=== PATIENT | male | born 1955 | race Caucasian/White ===

== ENCOUNTER → 2017-10-13 | Outpatient (CLI) | payer MEDICARE, OTHER ==
[~2017-10-13] MED LIST: ACET500 PO; ALBU3IS INH; ALBU90OI6 INH; ALLO100 PO; ALLO300 PO; ALUMAGX30 PO; AMIT25 PO; AMITRIP CDP PO; AMOCLA875 PO; AMOX1XR PO; AMOX500 PO; AMOXICILLIN-CL1 EACH PO; ASPI325 PO; ASPI325EC PO; ASPI81CH PO; Aspir 8181 MG PO; BENZ100A PO; BUDE6HFA; BYDUREON P2 MG/0.65 SQ; BYDUREON2 MG SQ; CEPH500 PO; CLON.1 PO; COLC.6 PO; COLL250TO TOP; CYAN100 PO; CYAN1000 PO; CYAN500 PO; DOCU100 PO; DULO60; DULO60 PO; ERGO50000 PO; FURO40 PO; GABA600 PO; Humalog100 UNIT/1; Humalog100 UNIT/1 SC; INSULANI SC; ISOMON30 PO; Isosorbide Mono30 MG PO; LAVAP17G PO; LISHYD1012 PO; LISI20 PO; LISI5 PO; LITH300C PO; LORA10 PO; LORA10ER; LORA10ER PO; Lisinopril2.5 MG PO; METF500 PO; METH10 PO; METO100ER PO; METO50 PO; MORP15ER PO; MULVITMIND PO; NICO14TP TOP; NITR.4SL SL; OLME20 PO; OMEP20ER PO; OTC COUGH; OXYACE5T PO; OXYC1TAB11; OXYC30ER PO; PERCOCET 10/325 PO; PIOG45 PO; POLY17UD PO; POTA10T PO; POTCHL20ER PO; PRAV20 PO; PRAV40 PO; Percocet 10-321 EACH PO; ROSU10TA PO; SACC250C PO; SENN187 PO; SERT50 PO; SULTRIDS PO; Senexon8.6 MG PO; TERA1 PO; TRAZ150T57 PO; Ventolin5 MG/1 ML INH; Vitamin B Comple1 EA PO
[2017-10-13 18:27] LABS: Alanine Aminotransfer (ALT/SGP 50 U/L (12-78); Albumin, Blood 3.4 g/dL (3.4-5.0); Albumin/Globulin Ratio 0.9 (0.8-1.8); Alk Phos 109 U/L (50-136); Anion Gap 10 mmol/L (6-16); Aspartate Aminotrans (AST/SGOT 27 U/L (12-37); Bilirubin, Total 0.2 mg/dL (0.1-1.0); Blood Urea Nitrogen 12 mg/dL (8-24); Bun/Creatinine Ratio 16.6 (12.0-20.0); CHOL/HDL RATIO 4.5; CO2, Blood 25 mmol/L (21-32); Calcium, Blood 9.6 mg/dL (8.5-10.1); Chloride, Blood 104 mmol/L (98-108); Cholesterol 159 mg/dL (50-200); Creatinine, Blood 0.72 mg/dL (0.60-1.20); Globulin, Blood 3.9 g/dL (2.2-4.0); Glomerular Filtration Rate >60 (60-); Glucose, Blood 197 mg/dL (70-99); HDL Cholesterol 35 mg/dL (>39); LDL/HDL RATIO 1.5; Low Density Lipoprotein Chol 52 mg/dL (0-110); Potassium, Blood 3.9 mmol/L (3.5-5.5); Sodium, Blood 139 mmol/L (136-145); Total Protein, Blood 7.3 g/dL (6.4-8.2); Triglycerides 362 mg/dL (30-160); Very Low Density Lipoprot Chol 72 mg/dL (6-32)
== END | disposition home or self-care (01) ==
LOC: LAB 16:10
PROVIDERS: Nurse Practitioner Family
DX: E11.49 Type 2 diabetes mellitus with other diabetic neurological complication (principal)
CPT/HCPCS: 80053; 80061; 82043; 83036

== ENCOUNTER 2023-08-10 10:18 | Emergency (ER) | payer MEDICARE, OTHER ==
[~2023-08-10] VITALS: Ht 188 cm; Wt 127.0 kg
[~2023-08-10 10:18] MED LIST changes: +METHOCARBAMOL1000 MG PO
[2023-08-10 10:43] VITALS: BP 106/78
[2023-08-10 11:25] LABS: BASOPHILS ABSOLUTE AUTO 0.04 K/mm3 (0.00-0.23); BASOPHILS PERCENT AUTO 0 % (0-2); EOSINOPHILS PERCENT AUTO 1 % (0-6); Hematocrit 46.5 % (37.0-53.0); Hemoglobin 15.1 g/dL (13.5-17.5); IMMATURE GRAN ABSOLUTE AUTO 0.06 K/mm3 (0.00-0.10); IMMATURE GRAN PERCENT AUTO 1 % (0-1); LYMPHOCYTES ABSOLUTE AUTO 1.98 K/mm3 (0.84-5.20); LYMPHOCYTES PERCENT AUTO 22 % (21-46); MONOCYTES ABSOLUTE AUTO 0.73 K/mm3 (0.16-1.47); MONOCYTES PERCENT AUTO 8 % (4-13); Mean Corpuscular HGB 31.7 pg (26.0-34.0); Mean Corpuscular HGB Conc 32.5 g/dL (31.5-36.5); Mean Corpuscular Volume 98 fL (80-100); Mean Platelet Volume 9.7 fL (9.1-12.4); NEUTROPHILS ABSOLUTE AUTO 6.24 K/mm3 (1.96-9.15); NEUTROPHILS PERCENT AUTO 68 % (41-73); Platelet Count 236 K/mm3 (150-400); RDW Standard Deviation 50.5 fL (35.1-46.3); Red Blood Cell Count 4.77 M/mm3 (4.30-5.90); White Blood Cell Count 9.15 K/mm3 (4.00-11.30)
[2023-08-10 11:36] LABS: Ethanol (Alcohol), Blood, Med <3 mg/dL; Salicylate <1.7 mg/dL (2.8-20.0)
[2023-08-10 11:39] LABS: Alanine Aminotransfer (ALT/SGP 39 U/L (12-78); Albumin, Blood 3.3 g/dL (3.4-5.0); Albumin/Globulin Ratio 0.9 (0.8-1.8); Alk Phos 100 U/L (50-136); Anion Gap 2 mmol/L (6-16); Aspartate Aminotrans (AST/SGOT 22 U/L (12-37); Bilirubin, Total 0.4 mg/dL (0.1-1.0); Blood Urea Nitrogen 15 mg/dL (8-24); Bun/Creatinine Ratio 14.2 (12.0-20.0); CO2, Blood 31 mmol/L (21-32); Calcium, Blood 9.5 mg/dL (8.5-10.1); Chloride, Blood 107 mmol/L (98-108); Creatinine, Blood 1.06 mg/dL (0.60-1.20); Globulin, Blood 3.8 g/dL (2.2-4.0); Glomerular Filtration Rate 76 (60-); Glucose, Blood 170 mg/dL (70-99); Potassium, Blood 4.7 mmol/L (3.5-5.5); Sodium, Blood 140 mmol/L (136-145); Total Protein, Blood 7.1 g/dL (6.4-8.2)
[2023-08-10 11:39] LABS: Source, Urine Clean Catch
[2023-08-10 11:40] LABS: Acetaminophen, Random <2.0 ug/mL (10.0-30.0)
[2023-08-10 11:45] LABS: Appearance, Urine Clear (Clear); Bilirubin, Urine Neg (Neg); Blood, Urine Neg (Neg); Color, Urine Yellow (P-Yellow); Glucose Qualitative, Urine 4+ (Neg); Ketones, Urine 1+ (Neg); Leukocyte Esterase, Urine Neg (Neg); Nitrite, Urine Neg (Neg); Protein, Urine 2+ (Neg); Specific Gravity, Urine 1.025 (1.003-1.022); Urobilinogen, Urine NORM (Normal)
[2023-08-10 11:52] LABS: Bacteria Rare /hpf; Mucus Light (0-Heavy); Red Blood Cells, Urine 0-2 /hpf (0-2); Squamous Epithelial Cells Not Seen /hpf (Few); White Blood Cells, Urine 0-2 /hpf (0-5)
[2023-08-10 11:58] LABS: U Cannabinoids Screen DETECTED; U Oxycodone Screen DETECTED
[2023-08-10 11:59] LABS: U Amphetamine Screen Not Detected; U Barbituate Screen Not Detected; U Benzodiazapine Screen Not Detected; U Buprenorphine Screen Not Detected; U Cocaine Screen Not Detected; U Methadone Screen Not Detected; U Methamphetamine Screen Not Detected; U Opiates Screen Not Detected; U Phencyclidine Screen Not Detected; U Propoxyphene Screen Not Detected
== END 2023-08-10 14:45 | disposition home or self-care (01) ==
LOC: ER 10:18
PROVIDERS: Emergency Medicine
DX: F32.A Depression, unspecified (principal); F43.9 Reaction to severe stress, unspecified; I48.92 Unspecified atrial flutter; Z88.8 Allergy status to other drugs, medicaments and biological substances; Z79.899 Other long term (current) drug therapy; Z79.82 Long term (current) use of aspirin; Z79.4 Long term (current) use of insulin; F17.210 Nicotine dependence, cigarettes, uncomplicated; E11.40 Type 2 diabetes mellitus with diabetic neuropathy, unspecified; I11.0 Hypertensive heart disease with heart failure; I50.9 Heart failure, unspecified
CPT/HCPCS: 36415; 71045; 80053; 81001; 83880; 84484; 85025; 93005; 93010; 99284-25; G0480

== ENCOUNTER → 2023-11-26 | Outpatient (CLI) | payer MEDICARE, OTHER ==
[2023-11-26 15:53] LABS: Source, Urine Clean Catch
[2023-11-26 16:20] LABS: Appearance, Urine Clear (Clear); Bilirubin, Urine Neg (Neg); Blood, Urine Neg (Neg); Color, Urine Yellow (P-Yellow); Glucose Qualitative, Urine Neg (Neg); Ketones, Urine Neg (Neg); Leukocyte Esterase, Urine Neg (Neg); Nitrite, Urine Neg (Neg); Protein, Urine 2+ (Neg); Urobilinogen, Urine NORM (Normal)
[2023-11-26 16:40] LABS: Bacteria Few /hpf; Mucus Light (0-Heavy); Red Blood Cells, Urine 0-2 /hpf (0-2); Squamous Epithelial Cells Rare /hpf (Few); White Blood Cells, Urine 0-2 /hpf (0-5)
== END ==
LOC: LAB 15:51 → LAB SHORT 15:51
PROVIDERS: Internal Medicine Nephrology
DX: N39.0 Urinary tract infection, site not specified (principal)
CPT/HCPCS: 81001

== ENCOUNTER 2024-06-29 08:10 | Inpatient (IN) | payer MEDICARE, OTHER ==
[~2024-06-29] VITALS: Ht 190.5 cm; Wt 106.0 kg
[~2024-06-29 08:10] MED LIST changes: +ALLOPURINOL100 M1 PO; +ASPIR 8181 M1 PO; +BASAGLAR K100 UNIT/3 SC; +CATAPRES0.1 MG PO; +COLCRYS0.6 M1 PO; +DILTIAZEM 24HR300 M2 PO; +DULOXETINE HCL60 M1 PO; +ELIQUIS5 M2 PO; +FURO80 PO; +JARDIANCE10 MG PO; +KLOR-CON 1010 ME9 PO; +METO50ER PO; +MIRALAX17 GM PO; +NOVOLOG100 UNIT/2 SC; -OXYC1TAB11; +PRED20 PO; +Percocet 5-3251 EACH PO; +SPIR25 PO
[2024-06-29 08:36] LABS: Base Excess Venous -1.7 mmol/L; Bicarbonate Venous 20.9 mmol/L (24.0-30.0); PCO2 Venous 56.2 mmHg (38-42); pH Blood Venous 7.26 (7.34-7.37)
[2024-06-29 08:46] LABS: BASOPHILS ABSOLUTE AUTO 0.05 K/mm3 (0.00-0.23); BASOPHILS PERCENT AUTO 0 % (0-2); EOSINOPHILS PERCENT AUTO 0 % (0-6); Hematocrit 52.2 % (37.0-53.0); IMMATURE GRAN ABSOLUTE AUTO 0.21 K/mm3 (0.00-0.10); IMMATURE GRAN PERCENT AUTO 1 % (0-1); LYMPHOCYTES ABSOLUTE AUTO 1.15 K/mm3 (0.84-5.20); LYMPHOCYTES PERCENT AUTO 8 % (21-46); MONOCYTES ABSOLUTE AUTO 1.11 K/mm3 (0.16-1.47); MONOCYTES PERCENT AUTO 8 % (4-13); Mean Corpuscular HGB 30.8 pg (26.0-34.0); Mean Corpuscular HGB Conc 32.6 g/dL (31.5-36.5); Mean Corpuscular Volume 95 fL (80-100); Mean Platelet Volume 10.7 fL (9.1-12.4); NEUTROPHILS ABSOLUTE AUTO 12.36 K/mm3 (1.96-9.15); NEUTROPHILS PERCENT AUTO 83 % (41-73); Platelet Count 196 K/mm3 (150-400); RDW Coefficient Variation 13.9 % (11.7-14.2); Red Blood Cell Count 5.52 M/mm3 (4.30-5.90); White Blood Cell Count 14.88 K/mm3 (4.00-11.30)
[2024-06-29 08:56] LABS: Albumin, Blood 3.4 g/dL (3.4-5.0); Albumin/Globulin Ratio 0.7 (0.8-1.8); Bilirubin, Total 1.2 mg/dL (0.1-1.0); Bun/Creatinine Ratio 41.5 (12.0-20.0); Calcium, Blood 10.6 mg/dL (8.5-10.1); Creatinine, Blood 1.35 mg/dL (0.60-1.20); Globulin, Blood 4.8 g/dL (2.2-4.0); Potassium, Blood 5.3 mmol/L (3.5-5.5); Total Protein, Blood 8.2 g/dL (6.4-8.2)
[2024-06-29] MEDS ORDERED: NS 1,000 ML IV SCH (09:30)
[2024-06-29 09:43] LABS: Influenza A, PCR NEGATIVE (NEGATIVE); Influenza B, PCR NEGATIVE (NEGATIVE); Resp Syncytial Virus, PCR NEGATIVE (NEGATIVE); SARS-Cov-2 (COVID-19) PCR, MMC NEGATIVE (NEGATIVE)
[2024-06-29] MEDS ORDERED: CefTRIAXone Sodium 1,000 MG in NS 100 ML IV ONE (09:45)
[2024-06-29] MEDS ORDERED: Morphine Sulfate 4 MG/1 ML Injection IV ONE ×2 (10:20→12:55)
[2024-06-29 10:46] LABS: Anti-Xa UFH, PHA Monitoring <0.10 IU/mL; International Normalized Ratio 1.23
[2024-06-29] MEDS ORDERED: Heparin Sodium,Porcine/0.5 NS 500 ML IV SCH (10:50)
[2024-06-29] MEDS ORDERED: Heparin Sodium 5000 Units/ML 1ML MDV IV ONE (10:50)
[2024-06-29] MEDS ORDERED: FLU VACC TS2024-25(6MOS UP)/PF 45 MCG/0.5 ML SYRINGE IM SCH (11:45)
[2024-06-29] MEDS ORDERED: Furosemide 10 MG/ML 4ML Vial IV ONE (11:50)
[2024-06-29] MEDS ORDERED: Metoprolol Tartrate 1 MG/ML 5 ML VIAL IV PRN (11:50)
[2024-06-29] MEDS ORDERED: Insulin Regular 100 Unit/ML 1ML Dose SC SCH (12:00)
[2024-06-29 12:04] LABS: Source, Urine Clean Catch
[2024-06-29 12:15] LABS: Appearance, Urine Clear (Clear); Blood, Urine 2+ (Neg); Color, Urine Amber (P-Yellow); Glucose Qualitative, Urine 2+ (Neg); Ketones, Urine Neg (Neg); Leukocyte Esterase, Urine Neg (Neg); Nitrite, Urine Neg (Neg); Protein, Urine 4+ (Neg); Specific Gravity, Urine 1.025 (1.003-1.022); Urobilinogen, Urine 2+ (Normal)
[2024-06-29] MEDS ORDERED: Aspirin 325 MG Tab PO ONE (12:15)
[2024-06-29 12:49] LABS: Base Excess Venous -4.2 mmol/L; Bicarbonate Venous 20.4 mmol/L (24.0-30.0)
[2024-06-29 13:30] LABS: Bilirubin, Urine 1+ (Neg)
[2024-06-29 13:33] LABS: Bacteria Rare /hpf; Squamous Epithelial Cells Rare /hpf (Few); White Blood Cells, Urine 0-2 /hpf (0-5)
[2024-06-29 13:34] LABS: Hyaline Casts TNTC /lpf (0-2)
[2024-06-29 14:38] VITALS: BP 127/99
[2024-06-29] MEDS ORDERED: Lidocaine HCl 2% 20 MG/ML 5ML SYR IV ONE (15:15)
[2024-06-29] MEDS ORDERED: FentaNYL Citrate 50 MCG/ML 2 ML Injection IV PRN (16:10)
--- NOTE | 2024-06-29 16:45 | NUR ---
Heart rate sustaining at 119-120, pt c/o chest pain, asking for morphine shot like what helped in the ED. 5 mg IV metoprolol given, B/P stable.
[2024-06-29] MEDS ORDERED: Spironolactone 25 MG Tab PO SCH (17:00)
--- NOTE | 2024-06-29 17:41 | NUR ---
PT IS A NEW ADMIT THIS AFTERNOON THE PT CAME TO PCU 18 ON 4L NC W/ THE BIPAP ON STANDYBY. HE HAS BEEN GOING BACK N FORTH BETWEEN THE BIPAP AND THE NC SINCE BEING ON THE FLOOR. DR. JEROME WAS CONSULTED AND CAME TO BEDSIDE. WHILE AT BEDSIDE THE PT WAS REPORTING 9/10 PAIN. AN EKG WAS PREFORMED. THE PT STATES HE HAS BEEN HAVING THE ANGINA FOR [address] JEROME STATED HE DOES NOT THINK THE PAIN IS R/T THE HEART AND REFFERED ME TO THE HOSPITALIST. PLAN FOR DIURESIS TODAY AND POSSIBLE CARDIOVERSION 06/30. THE PT WILL BE NPO AT 0000. DR. ESQUIVEL WAS CALLED FOR PAIN MANAGEMENT AND PUT IN SOME ORDERS. THE PT WAS MEDICATED PER EMAR. ON TELE HE IS AFLUTTER 2:1 110'S. BP STABLE. THE PT HAS A LBKA, AND D/T SOB AND ANGINA HE IS BEDREST AT THIS TIME. HE HAS BEEN VERY ANXIOUS IN THE ROOM. THE VISITED BRIEFLY AND WAS UPDATED ON CARE. SEE NOTES FOR MORE UPDATES.
[2024-06-29] MEDS ORDERED: Insulin Regular 100 UNIT/ML 10ML Vial SC SCH (17:45)
[2024-06-29] MEDS ORDERED: Furosemide 10 MG/ML 4ML Vial IV SCH (18:00)
[2024-06-29 18:14] LABS: Base Excess Venous -3.1 mmol/L; Bicarbonate Venous 21.4 mmol/L (24.0-30.0); PCO2 Venous 45.9 mmHg (38-42); pH Blood Venous 7.31 (7.34-7.37)
[2024-06-29 20:27] VITALS: BP 122/88
[2024-06-29] MEDS ORDERED: Metoprolol Succinate 50 MG TABCR PO SCH (21:00)
[2024-06-29] MEDS ORDERED: Albuterol 2.5 MG/3 ML VIAL INH PRN (22:50)
[2024-06-30] VITALS (50 sets, daily range): BP systolic 100–147; BP diastolic 66–113
[2024-06-30 01:05] LABS: BASOPHILS ABSOLUTE AUTO 0.08 K/mm3 (0.00-0.23); BASOPHILS PERCENT AUTO 1 % (0-2); EOSINOPHILS ABSOLUTE AUTO 0.02 K/mm3 (0.00-0.68); EOSINOPHILS PERCENT AUTO 0 % (0-6); Hematocrit 48.5 % (37.0-53.0); Hemoglobin 16.3 g/dL (13.5-17.5); IMMATURE GRAN ABSOLUTE AUTO 0.27 K/mm3 (0.00-0.10); IMMATURE GRAN PERCENT AUTO 2 % (0-1); LYMPHOCYTES ABSOLUTE AUTO 1.77 K/mm3 (0.84-5.20); LYMPHOCYTES PERCENT AUTO 11 % (21-46); MONOCYTES ABSOLUTE AUTO 2.03 K/mm3 (0.16-1.47); MONOCYTES PERCENT AUTO 13 % (4-13); Mean Corpuscular HGB 31.4 pg (26.0-34.0); Mean Corpuscular HGB Conc 33.6 g/dL (31.5-36.5); Mean Corpuscular Volume 93 fL (80-100); Mean Platelet Volume 10.6 fL (9.1-12.4); NEUTROPHILS ABSOLUTE AUTO 12.12 K/mm3 (1.96-9.15); NEUTROPHILS PERCENT AUTO 74 % (41-73); NRBC ABSOLUTE 0.02 K/mm3 (0.00-0.02); NRBC Auto 0.1 /100 WBC (0.0-0.2); Platelet Count 168 K/mm3 (150-400); RDW Coefficient Variation 13.8 % (11.7-14.2); RDW Standard Deviation 46.8 fL (35.1-46.3); Red Blood Cell Count 5.19 M/mm3 (4.30-5.90); White Blood Cell Count 16.29 K/mm3 (4.00-11.30)
[2024-06-30 01:23] LABS: Albumin, Blood 3.1 g/dL (3.4-5.0); Albumin/Globulin Ratio 0.7 (0.8-1.8); Bilirubin, Total 1.1 mg/dL (0.1-1.0); Bun/Creatinine Ratio 49.2 (12.0-20.0); Calcium, Blood 10.5 mg/dL (8.5-10.1); Creatinine, Blood 1.2 mg/dL (0.60-1.20); Globulin, Blood 4.3 g/dL (2.2-4.0); Potassium, Blood 4.3 mmol/L (3.5-5.5); Total Protein, Blood 7.4 g/dL (6.4-8.2)
[2024-06-30] MEDS ORDERED: Dose Adjust by Pharmacy XX STA ×3 (01:27→15:48)
[2024-06-30] MEDS ORDERED: Morphine Sulfate 4 MG/1 ML Injection IV PRN (03:53)
[2024-06-30] MEDS ORDERED: Omeprazole 20 MG CapCR PO SCH (06:00)
[2024-06-30 08:53] LABS: Cholesterol 143 mg/dL (50-200); HDL Cholesterol 47 mg/dL (>39); LDL/HDL RATIO 1.6; Low Density Lipoprotein Chol 74 mg/dL (0-110); Triglycerides 112 mg/dL (30-160); Very Low Density Lipoprot Chol 22 mg/dL (6-32)
[2024-06-30] MEDS ORDERED: DULoxetine HCL 60 MG Capsule DR PO SCH (09:00)
[2024-06-30] MEDS ORDERED: Allopurinol 100 MG Tab PO SCH (09:00)
[2024-06-30] MEDS ORDERED: Empagliflozin 10 MG TAB PO SCH (09:00)
[2024-06-30] MEDS ORDERED: Docusate Sodium/Senna 1 Tab PO PRN (09:00)
[2024-06-30] MEDS ORDERED: Aspirin 81 MG TabEC PO SCH (09:00)
[2024-06-30 09:57] LABS: Base Excess Venous 1.6 mmol/L; pH Blood Venous 7.31 (7.34-7.37)
[2024-06-30 12:19] LABS: Base Excess Venous 2.9 mmol/L; Bicarbonate Venous 26.1 mmol/L (24.0-30.0); PCO2 Venous 47.9 mmHg (38-42); pH Blood Venous 7.38 (7.34-7.37)
--- NOTE | 2024-06-30 17:15 | NUR ---
EVENING DIURETIC: DURING THE DAY, THE PATIENT'S BLOOD PRESSURES HAVE TRENDED DOWN. HE STARTED THE SHIFT WITH SBP IN THE 120S-130S, AND IS NOW IN THE 100-110S. HIS SBP YESTERDAY WAS IN THE 130S-140S. DISCUSSED FINDINGS WITH DR. JEROME. DIURETIC ORDERS STAND THEY ARE. NO NEW ORDERS.
--- NOTE | 2024-06-30 18:20 | NUR ---
SHIFT SUMMARY: NEURO: PATIENT STARTED THE DAY VERY DROWSY AND WOULD FALL ASLEEP DURING A CONVERSATION WITH STAFF. THE DAY PROGRESSED AND THE PATIENT STAYED ON THE BIPAP FOR THE MAJORITY OF THE TIME, PATIENT WAS MORE ALERT DURING INTERACTIONS, WOULD WATCH TV WHEN OFF OF THE BIPAP AND WOULD NOT FALL ASLEEP WHEN STAFF WAS TALKING WITH HIM. PATIENT STILL VERY FATIGUED AND FALLS ASLEEP EASILY. PATIENT WOULD REPORT 10/10 CHEST PAIN (NO CHANGES TO VITALS, PATIENT RR 14-18, DENIED NUMBNESS/TINGLING, NO GRIMACING, WOULD FALL ASLEEP BEFORE THE RN COULD GET PAIN MEDICATIONS AND PATIENT REPORTED THIS WAS THE SAME PAIN HE WAS EXPERIENCING AT HOME). MEDICATED ONCE THIS AM WITH PRN PAIN MEDICATIONS. CARDIAC: PATIENT REMAINED IN AFLUTTER WITH A RATE 114-117. BY THE END OF SHIFT, PATIENT'S SBP IN THE 100S-110S. MAPS >65. SEE NOTE ABOVE ABOUT CHEST PAIN. RESPIRATORY: PATIENT REPORTED SOME SHORTNESS OF BREATH AT TIMES THIS AM. PATIENT TOLERATED THE BIPAP FOR THE REST OF THE DAY. PATIENT TOLERATED 3L VIA NC WHEN TAKING A BREAK FROM THE BIPAP. PATIENT DID NOT REPORT SHORTNESS OF BREATH THIS AFTERNOON. GI/: PATIENT HAD ABOUT 2200 OUT TODAY AFTER THE MORNING DOSE OF FUROSEMIDE. URINE WAS CLEAR, LIGHT YELLOW. PATIENT HAS A MINIMAL APPETITE. PATIENT WILL BE NPO AT MIDNIGHT FOR PROCEDURE TOMORROW. PSYCHSOCIAL: PATIENT'S ADELE CALLED TODAY. SHE IS WELL INFORMED OF THE PLAN OF CARE. PATIENT IS ANXIOUS AT TIMES. HE RESPONDS WELL TO EDUCATION AND REDIRECTION.
[2024-06-30] MEDS ORDERED: Rosuvastatin Calcium 10 MG Tab PO SCH (21:00)
[2024-07-01 03:00] VITALS: BP 109/74
[2024-07-01 05:08] LABS: Base Excess Venous 6.9 mmol/L; Bicarbonate Venous 28.5 mmol/L (24.0-30.0); PCO2 Venous 56.2 mmHg (38-42); pH Blood Venous 7.37 (7.34-7.37)
[2024-07-01 05:15] LABS: BASOPHILS ABSOLUTE AUTO 0.05 K/mm3 (0.00-0.23); BASOPHILS PERCENT AUTO 0 % (0-2); EOSINOPHILS ABSOLUTE AUTO 0.01 K/mm3 (0.00-0.68); EOSINOPHILS PERCENT AUTO 0 % (0-6); Hematocrit 48.9 % (37.0-53.0); Hemoglobin 16.3 g/dL (13.5-17.5); IMMATURE GRAN ABSOLUTE AUTO 0.22 K/mm3 (0.00-0.10); IMMATURE GRAN PERCENT AUTO 1 % (0-1); LYMPHOCYTES ABSOLUTE AUTO 1.01 K/mm3 (0.84-5.20); LYMPHOCYTES PERCENT AUTO 6 % (21-46); MONOCYTES ABSOLUTE AUTO 1.96 K/mm3 (0.16-1.47); MONOCYTES PERCENT AUTO 11 % (4-13); Mean Corpuscular HGB Conc 33.3 g/dL (31.5-36.5); Mean Corpuscular Volume 93 fL (80-100); Mean Platelet Volume 10.9 fL (9.1-12.4); NEUTROPHILS ABSOLUTE AUTO 13.89 K/mm3 (1.96-9.15); NEUTROPHILS PERCENT AUTO 81 % (41-73); Platelet Count 144 K/mm3 (150-400); RDW Coefficient Variation 13.8 % (11.7-14.2); RDW Standard Deviation 46.5 fL (35.1-46.3); Red Blood Cell Count 5.25 M/mm3 (4.30-5.90); White Blood Cell Count 17.14 K/mm3 (4.00-11.30)
[2024-07-01 05:40] LABS: Albumin, Blood 2.8 g/dL (3.4-5.0); Albumin/Globulin Ratio 0.7 (0.8-1.8); Bilirubin, Total 1.2 mg/dL (0.1-1.0); Bun/Creatinine Ratio 50.6 (12.0-20.0); Calcium, Blood 9.8 mg/dL (8.5-10.1); Creatinine, Blood 0.99 mg/dL (0.60-1.20); Globulin, Blood 4.2 g/dL (2.2-4.0); Potassium, Blood 3.6 mmol/L (3.5-5.5)
[2024-07-01] MEDS ORDERED: Dose Adjust by Pharmacy XX STA ×2 (05:56→12:18)
--- NOTE | 2024-07-01 06:02 | NUR ---
Shift summary- Cristino had a good night, remained on Bipap a majority of the night, had about 2-3 30 minute breaks from the Bipap to drink fluids and swab his mouth, otherwise the Bipap was used. It appears that he does well on the Bipap and has no complaints with it. He complained of pain one time at the beginning of the shift, it was resolved with the IV morphine. No other needs during my shift. Male saad worked well for Cristino.
[2024-07-01 08:00] VITALS: BP 108/77
[2024-07-01] MEDS ORDERED: Azithromycin 500 MG in NS 250 ML IV SCH (09:00)
[2024-07-01] MEDS ORDERED: CefTRIAXone Sodium 2,000 MG in NS 100 ML IV SCH (09:00)
[2024-07-01] MEDS ORDERED: NS 1,000 ML IV ONE ×2 (11:37→14:40)
[2024-07-01 11:48] VITALS: BP 123/87
[2024-07-01] MEDS ORDERED: propofoL 40 ML IV ONE (13:44)
--- NOTE | 2024-07-01 14:38 | NUR ---
CARDIOVERSION DR KAUR AND ANESTHESIA AT BEDSIDE FOR CARDIOVERSION. RT ALICIA AT BEDSIDE. PT O2 INCREASED TO 8L. PT MED WITH PROPOFOL PER ANESTHESIA. PT WITH SYNCHRONIZED CARDIOVERSION AT 150J DONE AT 1422. PT CONVERTED FROM AFLUTTER TO NSR 70'S. EKG DONE. PT DROWSEY, BUT BECOMING MORE AROUSABLE TO STIMULI AT THIS TIME. VITAL SIGNS STABLE.
[2024-07-01 17:42] VITALS: BP 120/91
--- NOTE | 2024-07-01 18:05 | NUR ---
SHIFT SUMMARY PT HAS ALTERNATED BETWEEN BIPAP AND 4L O2 NC THROUGHOUT THE SHIFT. PT WITH PERIODS OF BEING MORE AWAKE AND ALERT, WITH PERIODS OF LETHARGY. PT ANSWERS QUESTIONS APPROPRIATELY. PT CARDIOVERTED THIS AFTERNOON AND HAS SINCE REMAINED NSR WITH HR 70-80'S. SEE PREVIOUS NN. VITAL SIGNS STABLE. HEPARIN CONTINUES INFUSING AT 12 UNITS/KG/HR. PT TAKING PO INTAKE WELL THIS EVENING. PT COMPLAINS OF CHEST PAIN THIS EVENING. PT MED PER EMAR. MALE PUREWICK IN PLACE WITH YELLOW URINE OUTPUT NOTED. WILL CONTINUE TO MONITOR AND REPORT OFF TO ONCOMING RN.
[2024-07-01 20:00] VITALS: BP 120/90
--- NOTE | 2024-07-01 21:37 | NUR ---
ASSUMED CARE CARE ASSUMED AT APPROX 1900. PT A/O BUT IS LETHARGIC AND FALLS ASLEEP QUICKLY AFTER WOKEN UP. PT ANSWERS QUESTIONS APPROPRIATELY. PT ON 4 L N/C, O2 SATS > 90%. CARDIAC MONITORING SHOWS NSR WITH BBB, HR 80s. SBP 120s. PIV x2. HEPARIN GTT INFUSING PER EMAR, SEE FLOWSHEET. PT ENDORSES CP, MEDICATING PER EMAR. PT STATES CP IS CONSISTENT WITH CP HE HAS BEEN EXPERIENCING.
[2024-07-02] VITALS (12 sets, daily range): BP systolic 69–118; BP diastolic 49–81
[2024-07-02 04:08] LABS: BASOPHILS ABSOLUTE AUTO 0.04 K/mm3 (0.00-0.23); BASOPHILS PERCENT AUTO 0 % (0-2); EOSINOPHILS ABSOLUTE AUTO 0.01 K/mm3 (0.00-0.68); EOSINOPHILS PERCENT AUTO 0 % (0-6); Hemoglobin 16.3 g/dL (13.5-17.5); IMMATURE GRAN ABSOLUTE AUTO 0.21 K/mm3 (0.00-0.10); IMMATURE GRAN PERCENT AUTO 1 % (0-1); LYMPHOCYTES ABSOLUTE AUTO 1.08 K/mm3 (0.84-5.20); LYMPHOCYTES PERCENT AUTO 7 % (21-46); MONOCYTES ABSOLUTE AUTO 1.73 K/mm3 (0.16-1.47); MONOCYTES PERCENT AUTO 12 % (4-13); Mean Corpuscular HGB 31.8 pg (26.0-34.0); Mean Corpuscular Volume 94 fL (80-100); Mean Platelet Volume 10.9 fL (9.1-12.4); NEUTROPHILS ABSOLUTE AUTO 11.65 K/mm3 (1.96-9.15); NEUTROPHILS PERCENT AUTO 79 % (41-73); Platelet Count 157 K/mm3 (150-400); RDW Coefficient Variation 13.8 % (11.7-14.2); RDW Standard Deviation 46.7 fL (35.1-46.3); Red Blood Cell Count 5.13 M/mm3 (4.30-5.90); White Blood Cell Count 14.72 K/mm3 (4.00-11.30)
[2024-07-02 04:31] LABS: Albumin, Blood 2.8 g/dL (3.4-5.0); Albumin/Globulin Ratio 0.7 (0.8-1.8); Bilirubin, Total 0.9 mg/dL (0.1-1.0); Bun/Creatinine Ratio 45.2 (12.0-20.0); Calcium, Blood 9.9 mg/dL (8.5-10.1); Creatinine, Blood 1.26 mg/dL (0.60-1.20); Globulin, Blood 4.3 g/dL (2.2-4.0); Potassium, Blood 4.1 mmol/L (3.5-5.5); Total Protein, Blood 7.1 g/dL (6.4-8.2)
--- NOTE | 2024-07-02 05:12 | NUR ---
SHIFT SUMMARY NO ACUTE CHANGES THIS SHIFT. PT REMAINS ALERT AND ORIENTED BUT IS LETHARGIC AND FALLS BACK ASLEEP QUICKLY. PT USED BIPAP FOR MOST OF THE NIGHT WHEN SLEEPING, SETTINGS 12/6 FiO2 30%. AT THIS TIME PT ON 4 L N/C, O2 SATS > 90%. CARDIAC MONITORING REFLECTS NSR WITH BBB, HR 70s. SBP 120s. HEPARIN GTT INFUSING PER EMAR, SEE FLOWSHEET. PIV x2. MALE PUREWICK IN PLACE.
[2024-07-02] MEDS ORDERED: Amiodarone HCl 200 MG Tab PO SCH ×2 (09:00→21:00)
[2024-07-02] MEDS ORDERED: Sacubitril/Valsartan 24 MG-26 MG Tab PO SCH (09:00)
[2024-07-02] MEDS ORDERED: Metoprolol Succinate 50 MG TABCR PO SCH (09:00)
[2024-07-02] MEDS ORDERED: Apixaban 5 MG Tab PO SCH (09:00)
[2024-07-02] MEDS ORDERED: NS 250 ML IV ONE (13:15)
--- NOTE | 2024-07-02 15:13 | NUR ---
PT IS ALERT, HE WAKES TO VERBAL STIMULI BUT IS QUIET DROWSY FOR THE DAY. HE WAKES AND BEGINS SCREAMING OUT, STATING THAT HE HAS A 10/10 CHEST PAIN AND WILL THEN ABRUPTLY RETURN TO SLEEP. THIS AFTERNOON PT DID DEVELOP BRADYCARDIA AND HYPOTENSION, THERE WAS NO MENTATION CHANGE WITH THIS. I SPOKE WITH DR CABEZAS ABOUT HOLDING AFTERNOON DOSE OF AMIODRONE DUE TP BRADYCARDIA AND HYPOTENSION. PT DID RECIEVE A 250ML NS BOLUS WHICH DID BRING MAP UP TO HIGH 60s LOW 70s.
[2024-07-02] MEDS ORDERED: Metoprolol Succinate 25 MG TABCR PO SCH (21:00)
[2024-07-03] VITALS (7 sets, daily range): BP systolic 80–114; BP diastolic 41–70
[2024-07-03 04:22] LABS: BASOPHILS ABSOLUTE AUTO 0.04 K/mm3 (0.00-0.23); BASOPHILS PERCENT AUTO 0 % (0-2); EOSINOPHILS ABSOLUTE AUTO 0.04 K/mm3 (0.00-0.68); EOSINOPHILS PERCENT AUTO 0 % (0-6); Hematocrit 44.2 % (37.0-53.0); IMMATURE GRAN ABSOLUTE AUTO 0.25 K/mm3 (0.00-0.10); IMMATURE GRAN PERCENT AUTO 2 % (0-1); LYMPHOCYTES ABSOLUTE AUTO 1.09 K/mm3 (0.84-5.20); LYMPHOCYTES PERCENT AUTO 7 % (21-46); MONOCYTES ABSOLUTE AUTO 1.56 K/mm3 (0.16-1.47); MONOCYTES PERCENT AUTO 10 % (4-13); Mean Corpuscular HGB 32.1 pg (26.0-34.0); Mean Corpuscular HGB Conc 33.9 g/dL (31.5-36.5); Mean Corpuscular Volume 95 fL (80-100); Mean Platelet Volume 10.9 fL (9.1-12.4); NEUTROPHILS ABSOLUTE AUTO 11.99 K/mm3 (1.96-9.15); NEUTROPHILS PERCENT AUTO 80 % (41-73); NRBC ABSOLUTE 0.03 K/mm3 (0.00-0.02); NRBC Auto 0.2 /100 WBC (0.0-0.2); Platelet Count 150 K/mm3 (150-400); RDW Coefficient Variation 14.2 % (11.7-14.2); RDW Standard Deviation 47.8 fL (35.1-46.3); Red Blood Cell Count 4.67 M/mm3 (4.30-5.90); White Blood Cell Count 14.97 K/mm3 (4.00-11.30)
[2024-07-03 04:43] LABS: Albumin, Blood 2.6 g/dL (3.4-5.0); Albumin/Globulin Ratio 0.7 (0.8-1.8); Bilirubin, Total 0.8 mg/dL (0.1-1.0); Bun/Creatinine Ratio 51.7 (12.0-20.0); Calcium, Blood 9.6 mg/dL (8.5-10.1); Creatinine, Blood 1.16 mg/dL (0.60-1.20); Globulin, Blood 3.7 g/dL (2.2-4.0); Potassium, Blood 3.6 mmol/L (3.5-5.5); Total Protein, Blood 6.3 g/dL (6.4-8.2)
[2024-07-03] MEDS ORDERED: Torsemide 20 MG TAB PO SCH (09:00)
[2024-07-03] MEDS ORDERED: Spironolactone 25 MG Tab PO SCH (09:00)
--- NOTE | 2024-07-03 10:44 | NUR ---
DR CABEZAS WAS UPDATED ABOUT SOFT BPs FROM THIS AM POST MEDICATION ADMINISTRATION, WILL MONITOR VITALS, NO FURTHER ORDERS AT THIS TIME.
--- NOTE | 2024-07-03 17:32 | NUR ---
PT REMAINS DROWSY DURING THIS SHIFT, HE AWAKENS EASILY TO VERBAL STIMULI. VSS, PRESSURES HAD BEEN SOFT FOR THE FIRST PART OF THE DAY BUT AT THE TIME OF THIS NOTE BP HAS RISEN. PT'S SPOUSE CALLED TODAY, SHE IS CONCERNED ABOUT PT'S TRANSPORT HOME SHE STATES THAT HE NEEDS TO SENT HOME VIA AMBULANCE "SO HE DOES NOT LOSE HIS RIDE BENEFITS" SHE EXPRESSED A GOOD DEAL OF FRUSTATION STATING THAT SHE ALSO FEELS THAT HE HAS BEEN SENT HOME TOO EARLY DURING PREVIOUS ADMISSIONS. SHE WAS ENCOURAGED TO BE HERE TO DISCUSS THESE CONCERNS WITH DR DURING MORNING ROUNDS. PT HAS NOT COMPLAINED OF CHEST PAIN OR ABD PAIN TODAY. HE HAS REFUSED TO DRINK WATER ASKIN INSTEAD TO DRINK PEPSI EXCLUSIVELY, HE HAS BEEN ENCOURAGED TO DRINK 1 CUP OF WATER. PURE WICK REAMINS IN PLACE WHICH IS WORKING WELL
--- NOTE | 2024-07-03 21:16 | NUR ---
PT MEDICATED FOR 10/10 CHEST PAIN. CHEST PAIN REPRODUCABLE ON PALPATION TO CHEST WALL. VITAL SIGNS GROSSLY WITHIN NORMAL LIMITS. CLARIFIED PAIN SCALE WITH PT, PT VERIFIES 10/10. PT APPEARS IN NO ACUTE DISTRESS, SINUS RHYTHM W/PACS ON MONITOR.
--- NOTE | 2024-07-03 22:00 | NUR ---
PT RESTING COMFORTABLY WITH EYES CLOSED. VISIBLE RESPIRATIONS SEEN WNL. ALL VITAL SIGNS REMAIN NORMAL. PT IS ROUSABLE AND REPORTS DECREASE IN CHEST WALL PAIN.
[2024-07-04 00:10] VITALS: BP 113/65
[2024-07-04 04:00] VITALS: BP 135/52
--- NOTE | 2024-07-04 06:33 | NUR ---
DR. HAGER CALLED REGARDING THE CONSULT. ORDER PLACED FOR CTA OF ABD/PELVIS.
--- NOTE | 2024-07-04 06:45 | NUR ---
PT STABLE THROUGHOUT THE SHIFT. VITAL SIGNS REMAINED WNL. PT REMAINED ON 2L O2 BY NC. PT HAS HAD GOOD URINARY OUTPUT BY PURWICK. PT HAS BEEN DRINKING MORE WATER LAST NIGHT. PT DID HAVE ONE SMALL DIET PEPSI A COMPROMISE TO ENCOURAGE MORE WATER INTAKE. PT WAS MEDICATED FOR CHEST WALL PAIN X1. PT DOES HAVE MOIST COUGH AND SMALL GURGLES WHEN SPEAKING RIGHT AFTER DRINKING. PT HOB IS AT 90 WHEN THIS HAPPENS. NO C/O SOB OR ADDITIONAL/DIFFERING CP. PT CBG AT HS 154 AND RECEIVED NO NIGHTTIME COVERAGE. PT IS ABLE TO SWALLOW PILLS WHOLE WITH WATER W/O CHOKING OR OTHER DIFFICULTY. PT DID SLEEP MOSTLY THROUGHOUT THE NIGHT.
[2024-07-04 08:20] VITALS: BP 108/58
--- NOTE | 2024-07-04 08:25 | NUR ---
ASSUMED CARE: REPORT RECEIVED FROM JACOB HUSSEIN. ASSUMED CARE OF THIS PT AT APPROX 0700. ON ASSESSMENT, THE PT IS RESTING QUIETLY. HE AWAKENS AFTER REPEATED TACTILE STIMULUS & IS ORIENTED TO SELF/ PLACE ONLY. HE HAS DIFFICULTY STAYING ALERT LONG ENOUGH TO VERBALIZE TO THIS RN WHEN ASKED. LS DIM IN BASES, PT TITRATED FROM 2L TO 1L NC PER YUKO RT FOR SPO2 > 96%. MONITOR SHOWS SB-SR WITH HR 50-60s, BP STABLE. PT UNABLE TO SAFELY TOLERATE PO INTAKE AT THIS TIME R/T SOMNOLENCE. PER NOC RN REPORT, PT DOES NOT CLEAR SECRETIONS WELL AFTER TAKING PO MEDS, WILL REQUEST ST EVAL FROM ATTENDING PROVIDER. MALE PUREWICK IN PLACE WITH CLEAR YELLOW URINE NOTED IN SUCTION CANISTER. SKIN CONDITION OVERALL POOR WITH NUMEROUS AREAS OF SCABBING & REDNESS. Q2H REPOSITIONING TO MAINTAIN SKIN INTEGRITY. WILL CONTINUE TO MONITOR & UPDATE NEEDED.
[2024-07-04] MEDS ORDERED: Metoprolol Succinate 25 MG TABCR PO SCH (09:00)
[2024-07-04] MEDS ORDERED: Amiodarone HCl 200 MG Tab PO SCH (09:00)
[2024-07-04 11:06] VITALS: BP 108/63
[2024-07-04 15:43] VITALS: BP 116/64
--- NOTE | 2024-07-04 17:50 | NUR ---
SHIFT SUMMARY: NO ACUTE CHANGES SINCE PRIOR UPDATES. PT REMAINS DROWSY FOR MOST OF SHIFT, AWAKENING ONLY BRIEFLY TO VERBAL OR TACTILE STIMULI. ORIENTED ONLY TO SELF & FOLLOWING SOME DIRECTIONS. LS DIM IN BASES, PT ON 2L NC WITH O2 SATS > 92% ON AVG. MONITOR SHOWS SB-SR WITH HR 50-60s, BP STABLE. MALE PUREWICK IN PLACE WITH CLEAR YELLOW URINE NOTED IN SUCTION CANISTER. NO BM THIS SHIFT, PT NPO PER SPEECH THERAPIST. SKIN CONDITION OVERALL FRAGILE, POOR. Q2H REPOSITIONING TO MAINTAIN SKIN INTEGRITY. WILL CONTINUE TO MONITOR & REPORT OFF TO ONCOMING RN.
[2024-07-04] MEDS ORDERED: Insulin Regular 100 UNIT/ML 10ML Vial SC SCH (18:00)
[2024-07-04 20:00] VITALS: BP 123/68
[2024-07-05] VITALS: BP 111/60
[2024-07-05 04:00] VITALS: BP 138/64
--- NOTE | 2024-07-05 04:03 | NUR ---
PT REQUESTING PAIN MEDICATION. PT IS ABLE TO REMAIN AWAKE AT THIS TIME AND IS MEDICATED FOR CHEST WALL PAIN. PT HAS BEEN DROWSY THIS SHIFT. PT HAS REQUESTED PO FLUIDS FREQUENTLY AND IS REMINDED WHY PT IS ON NPO STATUS. PT ACCEPTS NPO STATUS WHEN ASPIRATION RISK AND COMPLICATIONS EXPLAINED.
[2024-07-05 04:14] LABS: BASOPHILS ABSOLUTE AUTO 0.05 K/mm3 (0.00-0.23); BASOPHILS PERCENT AUTO 1 % (0-2); EOSINOPHILS ABSOLUTE AUTO 0.03 K/mm3 (0.00-0.68); EOSINOPHILS PERCENT AUTO 0 % (0-6); IMMATURE GRAN ABSOLUTE AUTO 0.21 K/mm3 (0.00-0.10); IMMATURE GRAN PERCENT AUTO 2 % (0-1); LYMPHOCYTES ABSOLUTE AUTO 0.66 K/mm3 (0.84-5.20); LYMPHOCYTES PERCENT AUTO 6 % (21-46); MONOCYTES ABSOLUTE AUTO 1.08 K/mm3 (0.16-1.47); MONOCYTES PERCENT AUTO 10 % (4-13); Mean Corpuscular HGB 31.1 pg (26.0-34.0); Mean Corpuscular HGB Conc 32.6 g/dL (31.5-36.5); Mean Corpuscular Volume 95 fL (80-100); Mean Platelet Volume 10.9 fL (9.1-12.4); NEUTROPHILS ABSOLUTE AUTO 8.35 K/mm3 (1.96-9.15); NEUTROPHILS PERCENT AUTO 80 % (41-73); Platelet Count 117 K/mm3 (150-400); RDW Coefficient Variation 14.1 % (11.7-14.2); RDW Standard Deviation 49.1 fL (35.1-46.3); Red Blood Cell Count 4.82 M/mm3 (4.30-5.90); White Blood Cell Count 10.38 K/mm3 (4.00-11.30)
[2024-07-05 05:56] LABS: Albumin, Blood 2.3 g/dL (3.4-5.0); Albumin/Globulin Ratio 0.5 (0.8-1.8); Bilirubin, Total 0.7 mg/dL (0.1-1.0); Bun/Creatinine Ratio 40.2 (12.0-20.0); Creatinine, Blood 0.75 mg/dL (0.60-1.20); Globulin, Blood 4.2 g/dL (2.2-4.0); Potassium, Blood 3.9 mmol/L (3.5-5.5); Total Protein, Blood 6.5 g/dL (6.4-8.2)
--- NOTE | 2024-07-05 06:11 | NUR ---
PT CBG TRENDING DOWNWARD FROM 160 @1100 TO 78 @0600. PT REMAINS NPO. CALL PLACED TO DR. HANSEN AND NEW ORDERS PLACED.
--- NOTE | 2024-07-05 06:53 | NUR ---
PT VITAL SIGNS REMAINED STABLE THROUGHOUT THE SHIFT. PT WAS MEDICATED FOR PAIN X1. PT HAS BEEN DROWSY THROUGHOUT THE SHIFT, WAKING UP OCCASSIONALY TO ASK FOR WATER. PT FREQUENTLY RE-EDUCATED FOR THE NPO STATUS AND REASON BEHIND THAT. PT ACCEPTS RE-EDUCATION. WET ORAL SWABS GIVEN TO HELP PT WITH NPO STATUS. PT CBG HAS DECLINED SINCE PREVIOUS SHIFT. D50 X1 GIVEN PER ORDER. PT CONDITION OTHERWISE REMAINS UNCHANGED.
[2024-07-05] MEDS ORDERED: Dextrose 50% 50 ML Syringe IV ONE (07:00)
--- NOTE | 2024-07-05 07:41 | NUR ---
Bedside report from JACOB Swift. Pt is sleeping, not easily awakened with conversation at the bedside. CBG 122 at 0715.
--- NOTE | 2024-07-05 07:57 | NUR ---
Pt is sleeping. Per report, the pt is NPO post ST evaluation yesterday which he failed. All oral meds have been held at yesterday, including amiodarone, metoprolol and aspirin and eliquis. The pt has remained in sinus rhythm since the cardioversion yesterday. He did not wear the bipap over night, only O2 at 2 l/min by N.C, per report.
--- NOTE | 2024-07-05 07:59 | NUR ---
The pt was given D50 IV for CBG which was dropping over night.
[2024-07-05 08:00] VITALS: BP 137/60
[2024-07-05 08:47] VITALS: BP 120/67
--- NOTE | 2024-07-05 08:48 | NUR ---
Spo2 noted 87-88% on bipap, no O2 . Pt awakens, insisting on water. O2 added 2 l/min and spo2 improved to 95%. He falls asleep readily. called on the phone, asking for an update. She was updated on pt condition.
--- NOTE | 2024-07-05 09:33 | NUR ---
The pt is still sleepy when he is not having conversation or receiving care. Otherwise, he is talking, following directions, and cooperating with care.
--- NOTE | 2024-07-05 10:25 | NUR ---
Pt awakens to speech, states he will try to stay awake for ST re-visit today.
[2024-07-05 12:17] VITALS: BP 135/63
--- NOTE | 2024-07-05 12:19 | NUR ---
Pt awakens readily, states, "water, I want water". Declined to talk with his on the phone. Dr. Malagon was here, discussed NPO status , waiting for ST to re-evaluate. Expressed that pt has not received any PO medications due to his NPO status. Doctor asked if palliative care is involved, also PT/OT. I spoke with Palliative care RN earlier this morning; they will be follwing today.
--- NOTE | 2024-07-05 14:42 | NUR ---
Met w patient after ST ev. We discussed his code status and the patient very clearly stated he would not want either CPR or intubation. We also discussed goals of care to which the patient stated if he had to choose between staying here for treatment and going home comfortably, he would choose comfort. Working to reach pt's by phone, but so far no answer and VM not set up. V/O from hospitalist for DNR.
--- NOTE | 2024-07-05 15:12 | NUR ---
Pt was cleared for taking puree diet, and thickened liquids, meds crushed in applesauce. He was awake and able to take most of his morning meds at this time. Toprol XL is not crushable; it was held pending MD changing it to metoprolol tartrate. Pt spoke with palliative care; code status was changed to DNR and purple armband was placed on the right wrist.
[2024-07-05 15:26] VITALS: BP 134/64
--- NOTE | 2024-07-05 15:29 | NUR ---
Requested bowel care from attending MD. Pt has not had BM since before admission.
[2024-07-05] MEDS ORDERED: Polyethylene Glycol 3350 17 gm PO ONE (16:00)
[2024-07-05] MEDS ORDERED: Docusate Sodium/Senna 1 Tab PO PRN (16:00)
[2024-07-05] MEDS ORDERED: Polyethylene Glycol 3350 17 gm PO PRN (16:00)
--- NOTE | 2024-07-05 16:19 | NUR ---
Spoke with Nichelle, she is in agreement with comfort care. She states she is willing and able to take care of him at home with hospice. She requests to wait until the 3rd, as she has help coming in to clean out a space for the hospital bed. I let her know CM would address this with her tomorrow. She states she does not have a hospice preference, neither does the patient. Will place comfort care orders per Dr. Malagon.
[2024-07-05] MEDS ORDERED: Lansoprazole 15 MG TAB.RAP.DR PO SCH (17:00)
--- NOTE | 2024-07-05 17:09 | NUR ---
Nichelle is at the bedside.
[2024-07-05] MEDS ORDERED: Morphine Sulfate 20 MG/1ML 1 ML Oral Syringe SL PRN (17:15)
[2024-07-05] MEDS ORDERED: Ondansetron HCl 2 MG / ML 2ML Vial IV PRN (17:15)
[2024-07-05] MEDS ORDERED: LORazepam 1 MG Tab PO PRN (17:15)
[2024-07-05] MEDS ORDERED: LORazepam 2 MG/ML 1ML Injection IV PRN (17:15)
--- NOTE | 2024-07-05 18:07 | NUR ---
Pt was asking for pain medication, and he was also given bowel care meds. States his pain is in his chest, left side, reproducable with palpation. states he has had a lot of sensitivity in his chest for a long time. Pt ate most of his dinner, and took his medications without difficulty. states that for "years" he has had a weak swallow and a tendency to choke especially if talking while eating or taking medications. The pt at this time was repositioned to his comfort after oral nutrition and hydration was offered.
[2024-07-05] MEDS ORDERED: Metoprolol Tartrate 25 MG Tab PO SCH (21:00)
[2024-07-05] MEDS ORDERED: Insulin Regular 100 UNIT/ML 10ML Vial SC SCH (21:00)
--- NOTE | 2024-07-05 22:47 | NUR ---
REPORT GIVEN TO CEE [facility]ICKERS ON [facility]. PT GIVEN PO ROXINOL FOR PAIN PRIOR TO TRANSPORT. PT TAKEN ON BED TO ROOM 327. PT ADELE WAS NOTIFIED OF PT TRANSFER. ALL BELONGINGS AND PAPERWORK WITH PT AT TIME OF TRANSFER.
--- NOTE | 2024-07-05 23:37 | NUR ---
PT TRANSFERRED FROM [facility] [id number] TO MEDICAL FLOOR RM#[id number] @8209. THIS CONSUMER LENDER RECEIVED A SBAR OVER THE PHONE FROM CONFIGURATION MANAGEMENT CONSULTANT PARMJIT @7836. PT IS ALERT, ORIENTED X3-4, AND ABLE TO MAKE HIS NEEDS KNOWN. PT IS ON COMFORT CARE MEASURES. PT DENIES PAIN AT THIS TIME. PT IS ABLE TO SWALLOW THICKENED PO FLUIDS, AND REQUESTS DIET PEPSI. PT I ON 1L O2 VIA NASAL CANNULA. PT APPEARS SLEEPY, EASILY AWAKEN/ARAUSABLE. PER PARMJIT/JACOB@ [facility] REPORT, ADELE IS NOTIFIED THAT PT TRANSFERRED TO A DIFFERENT FLOOR/ROOM. PT IS RESTING AND APPEARS COMFORTABLE AT THIS TIME. NO SX OF PAIN PER FACE SCALE. BED AT THE LOWEST POSITION, CALL LIGHT WITHIN REACH. FREQUENT CHECKS BY THE BEDSIDE.
[2024-07-06] MEDS ORDERED: NS 250 ML IV PRN (11:15)
--- NOTE | 2024-07-06 15:04 | NUR ---
Spiritual care visit conducted. The patient is lying in bed and alert. He tells me that he is handling his situation well but is it is challenging. He struggles to talk and focus for long periods of time but welcomes prayer, which I gladly provide. I sit with patient for a bit as a calming presnece with encouraging words spoken. Patient voices gratitude and works hard to shake my hand upon my departure.
--- NOTE | 2024-07-06 16:21 | NUR ---
Patient's came in for a visit, and stated she is "struggling" with the patient's decision. However, after speaking with the patient, CM and Palliative Care, she states she understands, and is accepting that pt will go to [facility] for hospice care, as she is physically unable to care for him. Routine meds and insulin d/c'd at pt's request. Orders received from Dr. Malagon.
--- NOTE | 2024-07-06 18:36 | NUR ---
SHIFT SUMMARY- PT ALERT AND ORIENTED TO SELF AND FAMILY WHILE AWAKE. HE HAD A FULL BED BATH WITH LINNEN CHANGE THIS EVENING. NEW MALE PUREWICK PLACED, THE PRIOR ONE HAD LEAKED. PT HAS NOT HAD ANY STOOLS TODAY. PT IN BED, CALL LIGHT IN REACH NO S&S OF DISTRESS AT THIS TIME. MEDICATED PRE BATH WITH ORAL ROXANOL 10MG DOSE SEEMED TO WORK WELL AFTER PT BATH WAS COMPLETED.
--- NOTE | 2024-07-07 03:42 | NUR ---
SHIFT SUMMARY PT COMFORT CARE, A@O X3-4, ABLE TO MAKE HIS NEEDS KNOWN. PT USING CALL LIGHT AND REPORTS PAIN 10/10 IN THE CHEST WALL/RIBS. MEDICATED WITH ROXINOL ORDERED. EFFECTIVE PER FACE SCALE AND PT REPORT. PT REFUSES TO WEAR NASAL CANNULA, O2 @1L. PUREWICK IN PLACE, OUTPUT>500MLS. PT HAS A GOOD FLUID INTAKE. NO ACUTE EVENTS DURING THIS SHIFT. BED AT THE LOWEST POSITION, CALL LIGHT WITHIN REACH.
[2024-07-07 11:07] VITALS: BP 151/85
--- NOTE | 2024-07-07 11:21 | NUR ---
CASE CONFERENCE: Spoke by phone to pt's Nichelle, informed her there are currently no beds avaiable at [facility], so pt will be transferred to [facility] for hospice. Patient has stated he doesn't have a preference of facility, but requested [facility], states she doesn't care for [facility]. I explained to her the patient will have his own room, and will also be followed by a oncology transplant network manager. She states she does feel better about it with that information. She has financial concerns and questions, directed this to HEAD OF SALES AND MARKETING. CM also present for the conversation. Patient and state no preference in hospice agency.
[2024-07-07 14:14] LABS: SARS-Cov-2 (COVID-19) PCR, MMC NEGATIVE (NEGATIVE)
--- NOTE | 2024-07-07 20:21 | NUR ---
SHIFT SUMMARY- PT ALERT AND ORIENTED X4 WHEN HE IS AWAKE. PT IS A Q2 TURN. HE HAS A PUREWICK IN PLACE AT THIS TIME. HE HAD AROUND 4L OF MEASURED URINE OUTPUT THIS SHIFT. AT THE TIME OF BEDSIDE REPORT THE PT IS SITTING UP IN BED, HE WAKES TO STAFF VOICES AND TOUCH, DENIES THE NEED FOR PAIN MEDS. NO CURRENT S&S OF DISTRESS.
--- NOTE | 2024-07-08 06:22 | NUR ---
Shift Summary Pt resting and sleeping comfortably t/o shift. Medicated for pain once, 10 mg Roxinol which managed pain well. Offered to reposition multiple times which pt declined. Male purewick in place and patent. He occasionally groans loudly, and when I go in and ask if he's in pain he states he is not and declines medication/repositioning.
--- NOTE | 2024-07-08 10:20 | NUR ---
PATIENT DISCHARGED AT 0915 VIA MEDICAL TRANSPORT ON STRETCHER. PATIENT GOING TO [facility] ON COMFORT CARE. PATIENT COOPERATIVE WITH CARES THIS MORNING, ALERT AND RESPONDING TO VERBAL STIMULI. PATIENT ADVOCATING NEEDS FOR FOOD, FLUIDS, AND REPOSITIONING. PATIENT IS INCONTNENT OF BOWEL AND BLADDER. IV REMOVED BY SERINA MEYER. PATIENT DISCHARGED WITH ALL PERSONAL BELONGINGS. DISCHARGE PACKET GIVEN TO MEDICAL TRANSPORT FOR FACILITY.
== END 2024-07-08 09:36 | disposition hospice, inpatient (51) | DRG 308 ==
LOC: ER 08:10 → MEDS 11:43 → PCU 11:43 → MEDS 11:43 → PCU 14:28 → MEDS 07-05 22:40
PROVIDERS: Internal Medicine; Internal Medicine Cardiovascular Disease; Physician Assistant; ADMIT Family Medicine
PROC: 5A09357 Assistance with Respiratory Ventilation, Less than 24 Consecutive Hours, Continuous Positive Airway Pressure (ICD-10-PCS; 2024-06-29)
PROC: 5A2204Z Restoration of Cardiac Rhythm, Single (ICD-10-PCS; principal; 2024-07-01)
DX: I48.92 Unspecified atrial flutter (principal); I50.23 Acute on chronic systolic (congestive) heart failure; J96.01 Acute respiratory failure with hypoxia; I24.89 Other forms of acute ischemic heart disease; J44.1 Chronic obstructive pulmonary disease with (acute) exacerbation; L03.115 Cellulitis of right lower limb; E87.20 Acidosis, unspecified; N17.9 Acute kidney failure, unspecified; Z51.5 Encounter for palliative care; Z66 Do not resuscitate; I25.5 Ischemic cardiomyopathy; I25.10 Atherosclerotic heart disease of native coronary artery without angina pectoris; E11.9 Type 2 diabetes mellitus without complications; I48.91 Unspecified atrial fibrillation; I11.0 Hypertensive heart disease with heart failure; E66.9 Obesity, unspecified; G89.4 Chronic pain syndrome; M10.9 Gout, unspecified; F31.9 Bipolar disorder, unspecified; G47.33 Obstructive sleep apnea (adult) (pediatric); F17.200 Nicotine dependence, unspecified, uncomplicated; Z74.01 Bed confinement status; Z95.1 Presence of aortocoronary bypass graft; Z89.512 Acquired absence of left leg below knee; Z79.4 Long term (current) use of insulin; Z79.84 Long term (current) use of oral hypoglycemic drugs; Z79.82 Long term (current) use of aspirin; Z79.01 Long term (current) use of anticoagulants; Z86.718 Personal history of other venous thrombosis and embolism; Z68.36 Body mass index [BMI] 36.0-36.9, adult; Z79.891 Long term (current) use of opiate analgesic
CPT/HCPCS: 0241U; 36415; 71045; 80053; 80061; 81001; 82803; 82947; 83605; 83880; 84145; 84484; 85025; 85520; 85610; 85730; 87040; 92526; 92610; 93005; 93010; 94640; 94660; 94664; 94762; 96365; 96367; 96375; 97110; 97161; 99285-25; A9270; C8929; J0456; J0696; J1644; J1815; J1940; J2001; J2270; J2704; J3010; J7030; J7050; Q9957; U0002